=== PATIENT | male | born 1955 | race African-American/Black ===

== ENCOUNTER 2018-03-06 16:01 | Inpatient (IN) | payer MEDICARE, OTHER, SELFPAY ==
[~2018-03-06 16:01] MED LIST: ISOVUE-370 76%-LOCM 1 ML ONE; Iopamidol 370 76% 100 ML VIAL ONE; Iopamidol 370 76% 50 ML VIAL FS ONE; Lidocaine 1% PF 5 ML VIAL ONE; Ondansetron HCl/PF 4 MG/2 ML Vial ONE; PROPOFOL 200 MG/20 ML VIAL ONE; Succinylcholine Chloride 20 MG/ML 10 ml SYRINGE FS ONE; ePHEDrine/0.9% NaCl/PF SYRINGE 50 mg/10 ml ONE
[2018-03-06 16:22] LABS: #Basophils 0.1 thou/uL (0.0-0.2); #Eosinphils 0.8 thou/uL (0.0-0.7); #Lymphocytes 2.5 thou/uL (1.20-3.40); #Monocytes 0.6 thou/uL (0.11-0.59); #Neutrophils 3.4 thou/uL (1.40-6.50); %Basophils 1.5 % (0.0-1.0); %Eosinophils 11.3 % (0.0-10.0); %Lymphocytes 33.2 % (21.0-51.0); %Monocytes 8.3 % (0.0-10.0); %Neutrophils 45.7 % (42.0-75.0); Hemoglobin 14.3 g/dL (14.0-18.0); Mean Corpuscular HGB CONC 33.8 g/dL (32.0-36.0); Mean Platelet Volume 7.9 fL (7.4-10.4); Platelet Count 259 thou/uL (130-400); RBC Distribution Width 12.2 % (11.5-14.5); White Blood Cell (WBC) Count 7.4 thou/uL (4.8-10.8)
[2018-03-06 16:28] LABS: PTT 26.8 SEC (22.9-36.1); Prothrombin Time 13.4 SEC (12.0-14.7)
--- NOTE | 2018-03-06 16:29 | CT ---
NONCONTRAST CT HEAD 03/06/18 HISTORY: Aphasia. Patient unable to walk or stand unassisted. Has had a headache all day. FINDINGS: Scattered low density areas are seen throughout the periventricular white matter which are nonspecifi c but likely attributable to chronic small vessel ischemic changes. There are low density areas seen in each basal ganglia suggesting lacunar infarctions of indeterminate age. There is no evidence of an acute cortical infarction, hemorrhage, mass effect, or midline shift. There is a hyperdense asymmetr ic left MCA which could be related to thrombus in the left MCA. No definitive cortical infarction is seen on the left. There is mild cerebral volume loss. The ventricular system is normal in size, shape and position. There is mild mucosal thickening involving the ethmoidal air cells, and left sphenoid sinus and to a lesser degree right sphenoid sinus. There is mild deformity of the anterior wall left maxillary antru m as well as remote fracture and deformity involving the nasal bone. There is minimal scalp soft tissue swelling in the left supraorbital location. IMPRESSION: 1. Hyperdense left MCA sign which suggesting acute thrombus within the left middle cerebral sujatha ry. The dsouza-white differentiation does appear preserved, and no acute cortical infarction is seen on this exam. CT angiogram is recommended for further evaluation. 2. Lacunar infarctions in each basal ganglia of indeterminate age. 3. Chronic small vessel ischemic changes and cerebral volume loss. 4. Mild sinus disease. 5. Remote fracture and deformity involving the nasal bone as well as remote fracture deformity o f the anterior wall of the maxillary antrum. 6. Above findings discussed with Dr. Chi in the Emergency Department on 03/06/18 at 1616 hour s. POS: [facility]
[2018-03-06 16:35] LABS: ALT (SGPT) 61 U/L (8-55); AST (SGOT) 86 U/L (5-34); Albumin 3.9 g/dL (3.4-4.8); Alkaline Phosphatase 74 U/L (40-150); Anion Gap 14 mmol/L (10-20); BUN (Urea Nitrogen) 12 mg/dL (8.4-25.7); Bilirubin, Total 0.3 mg/dL (0.2-1.2); Calc. Creatinine Clearance 0 mL/min (70-130); Calcium 9.3 mg/dL (7.8-10.44); Carbon Dioxide 21 mmol/L (23-31); Chloride 106 mmol/L (98-107); Estimated GFR-MDRD 74; Glucose 116 mg/dL (80-115); Potassium 3.8 mmol/L (3.5-5.1); Protein, Total 7.9 g/dL (5.8-8.1); Sodium 137 mmol/L (136-145)
[2018-03-06 16:38] LABS: CKMB 1.5 ng/mL (0-6.6); Troponin I Less than 0.010 ng/mL (< 0.028)
[2018-03-06] MEDS ORDERED: Fentanyl 100 MCG/2 ML VIAL ONE ×2 (16:49→19:07)
[2018-03-06] MEDS ORDERED: Lidocaine 1% (PF) 30 ML VIAL ONE (16:52)
--- NOTE | 2018-03-06 16:56 | CT ---
CT ANGIOGRAM OF THE HEAD CT ANGIOGRAM OF THE NECK 03/06/18 HISTORY: Aphasia. Unable to stand and walk. Headache. COMPARISON: None. TECHNIQUE: CT angiogram of the head and neck are performed in the axial plane. Three dimensional reformatted zulma ges are submitted for interpretation. FINDINGS: Cortical dsouza-white matter differentiation appears to be preserved. No definite hemorrhage or extra-a xial hematoma. Adequate aeration of the sinuses and mastoid air cells. Bilateral ocular lenses are ap propriately located. Both globes are intact. Retrobulbar fat is preserved. Aerodigestive tract is patent. No obvious mass in the ------ cavity. Evaluation is limited by dental amalgam artifact. Epiglottis has normal caliber. Pre-epiglottic fat is preserved. There is no prevert ebral soft tissue swelling. Symmetric attenuation of the parotid and submandibular glands. Appropriate attenuation of the thyroid gland. Symmetric attenuation of the sternocleidomastoid muscles. Cervical spine vertebral body height is maintained. There is no fracture. There are fusion changes at C5-C6. Upper mediastinum and lung apices are unremarkable. Minimal dependent atelectatic changes. CT ANGIOGRAM: The visualized aortic arch has appropriate enhancement and luminal diameter. RIGHT CAROTID: The origin of the right carotid artery has appropriate enhancement and luminal diameter. There is mil d atherosclerotic disease involving the distal common carotid artery and carotid bifurcation. Neverth eless, no significant stenosis based upon NASCET criteria. Based on the sagittal reformatted images, there is short segment mild stenosis. LEFT CAROTID: The origin of the left carotid artery has appropriate enhancement and luminal diameter. There is appr opriate enhancement a nd luminal diameter of the left common carotid artery. In the left carotid bifurcation, there is shor t segment moderate stenosis based upon NASCET criteria (60% stenosis). Both subclavian arteries are unremarkable. Both cervical vertebral arteries are patent throughout the ir course in the neck. CT ANGIOGRAM OF THE HEAD: There is appropriate enhancement in luminal diameter of the distal cervical and intracranial internal carotid arteries. ANTERIOR CIRCULATION: There is appropriate enhancement and luminal diameter of the left and right A1 segments and the right M1 segments. There is abrupt truncation of contrast involving the proximal right M1 segment compatib le with thrombosis. The overall number of vessels in the right and left MCA distributions are relativ pete symmetric. Findings would imply appropriate collateralization at this time. POSTERIOR CIRCULATION: Both PICA artery origins are unremarkable. Both PICA arteries supply a normal appearing basilar arter y. The left and right P1 segments have symmetric enhancement and luminal diameter. IMPRESSION: 1. Thrombosis involving the left M1 segment. 2. Moderate stenosis involving the proximal left internal carotid artery. Results of the study discussed with Dr. Thomas 03/06/18 at 4:35 p.m. Code CR POS: [facility]
[2018-03-06] MEDS ORDERED: Heparin 10,000 UNITS/1 ML VIAL ONE (17:03)
[2018-03-06] MEDS ORDERED: hydrALAZINE 20 MG/ML VIAL ONE (17:08)
[2018-03-06] MEDS ORDERED: Esmolol 100 MG/10 ML VIAL ONE (17:08)
--- NOTE | 2018-03-06 17:43 | PRG ---
DATE OF SERVICE: 03/06/2018 SUBJECTIVE: Mr. Gonzalez is a 62-year-old gentleman that was noted to have the abrupt onset of rig ht hemiplegia and aphasia. He was brought to the emergency room where he underwent a noncontrast hea d CT which was negative for bleed. He subsequently underwent a CT angiogram of the head which reveal s presence of thrombus in the left M1 segment. The ER physician called me and already initiated the TPA process. She and I had a discussion and bas ed on all criteria, made decision to bring the patient back to the angiogram suite for the purposes o f cerebral angiography and potentially mechanical thrombectomy.
[2018-03-06] MEDS ORDERED: Labetalol HCl 100 MG/20 ML VIAL SLOW IVP PRN (18:59)
[2018-03-06] MEDS: Sodium Chloride 0.9% 1,000 ML IV SCH (21:14)
[2018-03-06] MEDS: Atorvastatin Calcium 40 MG TAB PO SCH (21:15)
[2018-03-06] MEDS: [UNRECOGNIZED DRUG - REMARK] FS SCH (21:16)
[2018-03-07] MEDS: Sodium Chloride 0.9% 1,000 ML IV SCH (08:03)
--- NOTE | 2018-03-07 08:32 | CT ---
CT BRAIN: Date: 03/07/18 PROVIDED CLINICAL HISTORY: Stroke. FINDINGS: Comparison made with study dated 03/06/18. There is interval development of more conspicuous hypodensity involving the left caudate, anterior li mb of left internal capsule, and left lentiform nucleus. The insular cortex is somewhat indistinct in portions. There is no evidence for intracranial hemorrhage with limitations due to patient motion. T here is mild mass effect upon the frontal horn of the left lateral ventricle due to the caudate regio n hypodensity. The extracranial soft tissues and osseous structures demonstrate an unremarkable CT ap pearance. IMPRESSION: 1. Findings compatible with left MCA distribution infarction. 2. No evidence for intracranial hemorrhage. POS: [facility]
[2018-03-07] MEDS: Sodium Chloride 0.45% 1,000 ML IV SCH ×2 (10:04→21:25)
--- NOTE | 2018-03-07 12:20 | CON ---
DATE OF CONSULTATION: 03/07/2018 CONSULTING PHYSICIAN: Hospitalist Service. IMPRESSION: 1. Left middle cerebral artery stroke. 2. Hypertension. 3. Tobacco use. PLAN: 1. Start aspirin after the 24-hour window from TPA. 2. Echocardiogram. 3. Reevaluate swallow function today. HISTORY OF PRESENT ILLNESS: Mr. Gonzalez is a 62-year-old gentleman who presented with expressive aphasia and right-sided weakness. His CT angio revealed an M1 segment occlusion. Dr. Lopez taken to the pathology laboratory director and perform thrombectomy. He also received TPA. He moved to the intensive care unit a nd has been on a Cardene drip. His blood pressures have been under good control, has not had any sub sequent problems such as seizures. PAST MEDICAL HISTORY: As listed above. ALLERGIES: None. SOCIAL HISTORY: Positive for tobacco use. FAMILY HISTORY: Unknown. REVIEW OF SYSTEMS: Not obtainable. PHYSICAL EXAMINATION: VITAL SIGNS: Pulse 88, blood pressure 133/56, respirations 15, saturations 96%. HEENT: Pupils equal and reactive. Conjunctivae clear. Oropharynx clear. NECK: Supple, no lymphadenopathy. EXTREMITIES: No cyanosis, clubbing or edema. NEUROLOGIC: He was alert and followed commands reasonably well. He had significant expressive langu age difficulties. There is a right nasal labial fold flattening. He had antigravity strength on the right side, though his rapid alternating movements were a bit sluggish. Sensation was grossly intac t. Plantar responses were equivocal on the right and downgoing on the left. Sensation seemed to be intact. Gait is not testable. LABORATORY STUDIES: EKG shows normal sinus rhythm. CT scan of the brain showed evidence of an evolving left MCA distribution ischemic changes. SUMMARY: This is a 62-year-old gentleman with a history of hypertension and thrombosis in the left M 1 segment. He has some residual expressive aphasia, but is looking reasonably good in regards to par alysis. Agree with current care. Complete his workup with an echocardiogram.
--- NOTE | 2018-03-07 12:25 | CON ---
DATE OF CONSULTATION: 03/07/2018 SERVICE: Pulmonary Medicine. REASON FOR CONSULTATION: ICU patient. HISTORY OF PRESENT ILLNESS: The patient is a 62-year-old male with past medical history significant for essentially nothing who presented to the hospital with an abrupt onset of neurologic changes. He got TPA and underwent a CIERRA procedure with extraction of a large thrombus. He was intubated for the procedure. Afterwards, he was extubated. Overnight, neurologically he remained intact. He is following commands. He is moving all 4 extremities, but continues to have a persistent expressive aphasia. As such, I cannot get additional elements of the history. PAST MEDICAL HISTORY: 1. Hypertension. 2. Gastroesophageal reflux disease. PAST SURGICAL HISTORY: Unknown. SOCIAL HISTORY: The family denies significant alcohol or illicit drug use. He uses tobacco on a daily basis. FAMILY HISTORY: Noncontributory. ALLERGIES: No known drug allergies. MEDICATIONS: List of his inpatient medications were reviewed. No specific updates were made at this time. REVIEW OF SYSTEMS: General, head, ears, eyes, nose, throat, cardiovascular, respiratory, GI, , musculoskeletal, neurologic and skin is negative except as mentioned in the HPI. PHYSICAL EXAMINATION: VITAL SIGNS: Afebrile, pulse 87, blood pressure 124/62, respirations 24, saturation 97% on room air. GENERAL: The patient is awake and alert, in no apparent distress. LUNGS: Excellent air entry with no prolonged expiratory phase, wheezing, rhonchi or crackles present. HEART: Normal rate, regular. ABDOMEN: Soft, nontender, nondistended. Bowel sounds are positive. MUSCULOSKELETAL: No cyanosis or clubbing. No pitting in the bilateral lower extremities. NEUROLOGIC: Grossly nonfocal. LABORATORY DATA: WBC 7.4, hemoglobin 14.3, platelets 259,000. INR 1.0. Basic metabolic profile and liver function studies are unremarkable except for a mildly elevated AST and ALT. Cardiac enzymes are negative x1. IMAGIN. CT of the brain from this morning demonstrates findings compatible with left MCA distribution infarction with no evidence of intracranial hemorrhage. 2. CT of the [place] demonstrates thrombus involving the left M1 segment with moderate stenosis involving the proximal left internal carotid artery. 3. Original CT of brain demonstrates hyperdense left MCA sign suggesting acute thrombus. Lacunar infarcts are age indeterminate. History of facial fractures. ASSESSMENT: 1. Cerebrovascular accident, status post TPA and CIERRA procedure. 2. Hypertension. DISCUSSION AND PLAN: After 24 hours, the patient will be a candidate for transition out of the ICU to the stroke unit. Pulmonary Critical Care will continue to follow if he remains in this location. 70 minutes have been devoted to this patient in various activities. I personally reviewed all imaging studies and laboratory data noted within this document. For fifty percent of this time, I was interacting with the patient at the bedside or coordinating care with the care team. For the remainder of the time I was immediately available to the patient in the hospital unit. ANILA
--- NOTE | 2018-03-07 12:53 | HP ---
CHIEF COMPLAINT: Drug symptoms. HISTORY OF PRESENT ILLNESS: Patient is a 62-year-old male who apparently had a history of a prior st roke who was in his usual state of health and presented to the emergency department with altered ment al status and weakness. In the emergency department, the patient had a CT of the brain, showed a hyp erdense left MCA sign suggesting acute thrombus within the left MCA with no acute cortical infarction seen. Lacunar infarctions of each basal ganglia of indeterminate age were noted. Chronic small ves giselle ischemia, mild sinus disease and remote fracture deformity involving the nasal bone and maxillary antrum by a subsequent CT angiogram revealed thrombus involving the left M1 segment with moderate st enosis involving the proximal left internal carotid artery. Dr. Lopez evaluated the patient in the e mergency department. The patient had TPA initiated. The patient was taken for mechanical thrombecto my which apparently was unsuccessful. Subsequently, the patient has remained somewhat aphasic with e xpressive aphasia. A repeat CT today shows findings compatible with left MCA distribution infarction . REVIEW OF SYSTEMS: Not obtainable as the patient is suffering from some expressive aphasia. The pat christen's is unable to give significant more information, although she is present. PAST MEDICAL HISTORY: Notable for hypertension and occasional reflux symptoms. She is unaware of an y prior surgeries that he may have had. She does not know anything about his past medical history pr ior to that time that they have been together which she says was 2005. She does report that he had a prior CVA in [facility]. FAMILY HISTORY: Unknown. SOCIAL HISTORY: The patient smokes a pack of cigarettes per day. He drinks beer 2-3 cans per day. She is unaware if he does any drugs or not. ALLERGIES: None known. MEDICATIONS: The patient takes something for hypertension and occasionally for reflux, but those spe cifics are not known. The patient's does not know what they are. PHYSICAL EXAMINATION: VITAL SIGNS: Temperature is 98.3, pulse 85, BP 134/61, O2 sat 97% on room air, BP 104/61. GENERAL APPEARANCE: Age appropriate male. He is in no distress. He is awake and somewhat alert. H e makes eye contact and will follow commands, and attempting to verbalize. He tends to make more norm se than words. HEENT: He has arcus senilis. No OP lesions. CARDIOVASCULAR: Regular rate and rhythm with no murmurs. LUNGS: Clear to auscultation bilaterally with good chest wall expansion, air exchange. ABDOMEN: Soft, nontender, nondistended. EXTREMITIES: Warm and dry without significant edema. NEUROLOGIC: The patient moves all extremities. He will follow commands and has fairly good strength bilaterally, although it is unclear if he is given full efforts. He does appear to understand that he is being asked a question and does try to verbalize response, but his responses again are not comp rehensible. LABORATORY DATA: Initial labs from 03/06/2018, white count 7.4, hemoglobin 14.3, platelets 259. INR 1, PTT 26.8. Chemistries notable for CO2 of 21, glucose 116, AST 86, ALT 61. ASSESSMENT AND PLAN: 1. Cerebrovascular accident of the left M1 distribution with tPA and mechanical thrombectomy. The p atient has some persistent left MCA infarct and has some expressive aphasia. Appears to have fairly good movement, otherwise. The patient will remain in the ICU until 24 hours after the tPA and interv ention, then he can likely come to the stroke floor. Neurology has been consulted as well as the [facility] team. 2. Hypertension. The patient apparently had some elevated blood pressure in the night and had a Car dene drip started, which is now being weaned off as his blood pressures are quite good. DISPOSITION: I spoke to the patient's . He is a FULL CODE presently. We will continue to monit or his recovery. She reports that they are currently living with his brother, but is trying to get t hemselves into an apartment. We will need social work to help engage them to determine where the dis position may ultimately be.
[2018-03-07] MEDS: Atorvastatin Calcium 40 MG TAB PO SCH (21:26)
[2018-03-08] MEDS: [UNRECOGNIZED DRUG - REMARK] FS SCH (06:14)
[2018-03-08] MEDS: Sodium Chloride 0.45% 1,000 ML IV SCH ×3 (06:15→16:45)
[2018-03-08] MEDS: Enoxaparin Sodium 40 MG/0.4 ML SYRINGE SC SCH (08:20)
[2018-03-08 08:24] LABS: #Basophils 0.1 thou/uL (0.0-0.2); #Eosinphils 0.5 thou/uL (0.0-0.7); #Lymphocytes 2.1 thou/uL (1.20-3.40); #Monocytes 0.8 thou/uL (0.11-0.59); #Neutrophils 5.3 thou/uL (1.40-6.50); %Basophils 0.9 % (0.0-1.0); %Lymphocytes 23.8 % (21.0-51.0); %Neutrophils 60.3 % (42.0-75.0); Hemoglobin 14.4 g/dL (14.0-18.0); Mean Corpuscular HGB CONC 33.4 g/dL (32.0-36.0); Mean Corpuscular Hemoglobin 33.4 pg (27.0-31.0); Mean Platelet Volume 7.9 fL (7.4-10.4); Platelet Count 220 thou/uL (130-400); RBC Distribution Width 12.4 % (11.5-14.5); White Blood Cell (WBC) Count 8.7 thou/uL (4.8-10.8)
[2018-03-08 08:47] LABS: Anion Gap 16 mmol/L (10-20); BUN (Urea Nitrogen) 9 mg/dL (8.4-25.7); Calc. Creatinine Clearance 74 mL/min (70-130); Calcium 8.9 mg/dL (7.8-10.44); Carbon Dioxide 20 mmol/L (23-31); Chloride 102 mmol/L (98-107); Estimated GFR-MDRD Greater than 90; Glucose 107 mg/dL (80-115); Potassium 3.5 mmol/L (3.5-5.1); Sodium 134 mmol/L (136-145)
[2018-03-08] MEDS: Labetalol HCl 100 MG/20 ML VIAL SLOW IVP PRN ×3 (12:00→23:29)
--- NOTE | 2018-03-08 12:23 | PRG ---
DATE OF SERVICE: 03/08/2018. SUBJECTIVE: Mr. Gonzalez is now 2 days status post TPA & mechanical thrombectomy for a left MCA occlusion. Neurologically, he is doing extraordinarily well. He is able to move both sides in the upper and lower extremities. He is able to interact with me with respect to speech. He does have mild degree of expressive aphasia. This is a dramatic improvement as compared to his baseline NIH score upon presentation. I will defer additional stratification for stroke risk factors and medical management to our hospital service. ANILA
--- NOTE | 2018-03-08 13:37 | PDOC.PN ---
- Subjective Encounter Start Date: 03/08/18 Encounter Start Time: 11:00 No speaking much because of expressive dysphasia, but denies any problems. - Objective Vital Signs & Weight: Vital Signs (12 hours) Temp Pulse Pulse Pulse Pulse Resp BP 03/08/18 12:51 98.9 F 88 16 03/08/18 12:31 03/08/18 12:00 81 03/08/18 10:10 76 70 72 204/92 H 03/08/18 08:00 99.3 F 81 16 03/08/18 04:45 99.2 F 83 16 BP BP BP Pulse Ox 03/08/18 12:51 212/103 H 98 03/08/18 12:31 177/82 H 03/08/18 12:00 03/08/18 10:10 201/85 H 192/100 H 03/08/18 08:00 179/98 H 96 03/08/18 04:45 185/95 H 96 Weight Admit Weight 134 lb 14.766 oz Weight 134 lb 14.766 oz Most Recent Monitor Data Heart Rate from ECG 66 NIBP 144/68 NIBP BP-Mean 99 Respiration from ECG 22 SpO2 99 I&O: 03/07/18 03/08/18 03/09/18 06:59 06:59 06:59 Intake Total 1043 280 900 Output Total 2580 860 Balance -1537 -580 900 Result Diagrams: 03/08/18 08:17 03/08/18 08:17 Phys Exam - Physical Examination Constitutional: NAD Much more awake and alert. Respiratory: no wheezing, no rales, no rhonchi, clear to auscultation bilateral Cardiovascular: RRR, no significant murmur, no rub Gastrointestinal: soft, non-tender, no distention, positive bowel sounds Musculoskeletal: no edema Good movement and strength of extremities. Appears mentally intact, but has expressive challenges. Psychiatric: normal affect Dx/Plan (1) CVA (cerebral vascular accident) Code(s): I63.9 - CEREBRAL INFARCTION, UNSPECIFIED Status: Acute Comment: Had TPA and mechanical extraction of thrombus. Primary residual is the expressive dysphasia. Has some dysphagia as well. Continue statin. Add ASA. Continue with therapies. Consider discharge options with CM tomorrow. (2) Expressive dysphasia Code(s): R47.02 - DYSPHASIA Status: Acute Comment: Able to speak single words correctly from time to time. (3) Hypertension Code(s): I10 - ESSENTIAL (PRIMARY) HYPERTENSION Status: Acute Comment: Has variable BP. Was on BP meds at home, but his was unable to help us know what it was. Some permissive HTN, but has PRN's for BP greater than 180. Higher than that now. Will add amlodipine and HCTZ for daily treatment at this point. - Plan * above.
[2018-03-08] MEDS ORDERED: Amlodipine 5 MG TAB PO SCH (14:00)
--- NOTE | 2018-03-08 17:50 | PRG ---
DATE OF SERVICE: 03/08/2018 SERVICE: Pulmonary Medicine. INTERVAL HISTORY: The patient is doing really remarkable from a neurologic standpoint. He continues to have a little aphasia. That being said, he has been able to get out of bed into the chair multip le times throughout the day. His strength actually seems to be pretty good. He denies any shortness of breath. He has a little bit of a cough, but is not bringing up any sputum. He seems to be swall owing okay with modifications that have been made. PHYSICAL EXAMINATION: VITAL SIGNS: Afebrile, pulse 82, blood pressure 135/87, respirations 20, saturation 96% on room air. GENERAL: The patient is awake, alert, no apparent distress. LUNGS: Decent air entry with no prolonged expiratory phase. There is rhonchi present, but it clears with cough. HEART: Normal rate, regular. ABDOMEN: Soft, nontender, nondistended. Bowel sounds are positive. MUSCULOSKELETAL: No cyanosis or clubbing. There is no pitting in the bilateral lower extremities. NEUROLOGIC: Grossly nonfocal. LABORATORY DATA: CBC is essentially unremarkable and/or stable. Basic metabolic profile is signific ant for sodium of 134. Otherwise, it is stable. Troponin is negative x1. IMAGING: Echocardiogram demonstrates 60% -65% ejection fraction with a diastolic dysfunction. ASSESSMENT: 1. Cerebrovascular of the left MCA, status post TPA and CIERRA procedure. 2. Hypertension. 3. Chronic diastolic heart failure. DISCUSSION AND PLAN: At this point, the patient is stable for transition out of the hospital from a purely respiratory perspective. He has no further requirements for inpatient Pulmonary or Pulmonary or Critical Care opinion. As such, I will sign off. Please call with additional questions or concer ns moving forward.
[2018-03-08] MEDS: Atorvastatin Calcium 40 MG TAB PO SCH (20:55)
[2018-03-09] MEDS: hydrALAZINE 20 MG/ML VIAL SLOW IVP PRN ×2 (01:11→08:41)
[2018-03-09] MEDS: Sodium Chloride 0.45% 1,000 ML IV SCH ×2 (04:41→09:43)
[2018-03-09] MEDS: Labetalol HCl 100 MG/20 ML VIAL SLOW IVP PRN ×5 (05:32→20:23)
[2018-03-09] MEDS: Aspirin 325 MG TAB PO SCH (07:48)
[2018-03-09] MEDS: Hydrochlorothiazide 25 MG TAB PO SCH (07:48)
[2018-03-09] MEDS: Enoxaparin Sodium 40 MG/0.4 ML SYRINGE SC SCH (07:48)
[2018-03-09] MEDS: Amlodipine 10 MG TAB PO SCH (08:49)
--- NOTE | 2018-03-09 08:57 | PDOC.PN ---
- Subjective Encounter Start Date: 03/09/18 Encounter Start Time: 08:55 No new complaints. Has removed his telemetry. is present. She says the records for [facility] Apparently he was on Lisinopril and HCTZ for BP at home. She does not know what his blood pressure was running prior to this admission. She did say [facility] because his BP was not well controlled and the meds were to be increased. They did not go that follow up, but moved here. - Objective Vital Signs & Weight: Vital Signs (12 hours) Temp Pulse Resp BP BP Pulse Ox 03/09/18 08:49 75 193/96 H 03/09/18 08:41 75 193/96 H 03/09/18 08:01 98.4 F 72 16 206/105 H 96 03/09/18 07:47 67 206/105 H 03/09/18 07:30 94 L 03/09/18 05:32 90 03/09/18 04:00 99.3 F 90 24 H 186/103 H 98 03/09/18 01:11 71 03/08/18 23:58 98.6 F 71 20 206/108 H 97 03/08/18 23:29 86 03/08/18 20:56 86 Weight Admit Weight 134 lb 14.766 oz Weight 111 lb 12.8 oz Most Recent Monitor Data Heart Rate from ECG 66 NIBP 144/68 NIBP BP-Mean 99 Respiration from ECG 22 SpO2 99 I&O: 03/08/18 03/09/18 03/10/18 06:59 06:59 06:59 Intake Total 280 900 Output Total 860 Balance -580 900 Result Diagrams: 03/08/18 08:17 03/08/18 08:17 Phys Exam - Physical Examination Constitutional: NAD Speech is slightly better. Respiratory: no wheezing, no rales, no rhonchi, clear to auscultation bilateral Cardiovascular: RRR, no significant murmur, no rub Gastrointestinal: soft, non-tender, no distention, positive bowel sounds Musculoskeletal: no edema Improved, but persistent expressive dysphasia. Psychiatric: normal affect Dx/Plan (1) CVA (cerebral vascular accident) Code(s): I63.9 - CEREBRAL INFARCTION, UNSPECIFIED Status: Acute Comment: Had TPA and mechanical extraction of thrombus. Primary residual is the expressive dysphasia. Has some dysphagia as well. Continue statin. Add ASA. Continue with therapies. Consider discharge options with CM tomorrow. (2) Expressive dysphasia Code(s): R47.02 - DYSPHASIA Status: Acute Comment: Using several words, but still very challenged. (3) Hypertension Code(s): I10 - ESSENTIAL (PRIMARY) HYPERTENSION Status: Acute Comment: BP running very high overnight. Has had several PRN IV meds given without much improvement. Will increase the amlodipine dose and try the Labetalol since the hydralazine was not as helpful. Suspect he was running fairly high at home too. He appears asymptomatic, but challenging to know. - Plan * Work on controlling BP today. CM to work with patient's on dispo options. They are living with his brother now. She indicates that she has no way to prepare puree'd foods for him.
[2018-03-09] MEDS ORDERED: Amlodipine 5 MG TAB PO SCH ×2 (09:00)
--- NOTE | 2018-03-09 09:10 | PDOC.EVN ---
Event Note - Event Note Event Note: Noticing the patient's elevated MCV, the difficulty in controlling his BP and the report that the patient was up and moving around much of the night, I followed up with the patient's about his alcohol consumption. The 3 beers per day she initially reported that he drank daily are actually 24 oz cans rather than 12. She states he has drank that much everyday since she has known him. She says he drinks first thing in the morning. He has beer in stead of breakfast. I suspect this is some level of withdrawal and his BP is elevated as a result. I will give some ativan now and start librium.
[2018-03-09] MEDS: Lorazepam 1 MG TAB PO PRN (09:55)
[2018-03-09] MEDS ORDERED: Lorazepam 2 MG/ML VIAL SLOW IVP SCH (13:15)
[2018-03-09] MEDS: chlordiazePOXIDE HCl 25 MG CAP PO SCH ×2 (13:43→20:19)
[2018-03-09] MEDS ORDERED: Lorazepam 2 MG/ML VIAL SLOW IVP PRN (15:14)
[2018-03-09] MEDS ORDERED: Folic Acid 1 MG TAB PO SCH (16:15)
--- NOTE | 2018-03-09 16:22 | CCL ---
RADIOLOGY PROCEDURE NOTE: Date: 03/06/18 SURGEON: Sarkis Lopez M.D. SOLAR PHOTOVOLTAIC ELECTRICIAN: None. INDICATION: Ischemic stroke. DIAGNOSIS: Left MCA occlusion. PROCEDURE: Cerebral angiography with mechanical thrombectomy. ANESTHESIA: General. TECHNIQUE: The patient was brought into the angiogram suite and placed under general anesthesia. Both groins wer e prepped and draped in usual sterile fashion. 1% lidocaine was used to inject the right groin. A 5 [place] micropuncture set was used to gain access to the right common femoral artery. Using the Seldin filemon technique, an 8 [place] sheath was placed. An 8 [place] concentric guide catheter was passed over a 130 cm Jones II catheter, which was passed over a [employer] guidewire, was then placed within the le ft internal carotid artery. An AP and lateral angiogram was performed, which revealed complete occlus ion of the mid portion of the left middle cerebral artery. A Trevo device was deployed a total of 3 times. On the 3rd time, there was complete religious of flow into the middle cerebral artery territ ory with TICI score equal to 3. Guide was removed. Sheath was sewn into place secondary to prior admi nistration of TPA. The procedure came to an end without known complication. IMPRESSION: The patient underwent successful diagnostic angiography. Angiography revealed the presence of a compl ete occlusion of the left middle cerebral artery, which was suggested on the patient's CT angiogram. The patient underwent successful mechanical thrombectomy with religious of blood flow into the midd le cerebral artery.
[2018-03-09] MEDS: Atorvastatin Calcium 40 MG TAB PO SCH (20:19)
[2018-03-09] MEDS: Metoprolol Tartrate 25 MG TAB PO SCH (20:19)
[2018-03-10 06:24] LABS: #Basophils 0.1 thou/uL (0.0-0.2); #Eosinphils 0.1 thou/uL (0.0-0.7); #Lymphocytes 1.1 thou/uL (1.20-3.40); #Monocytes 0.9 thou/uL (0.11-0.59); #Neutrophils 6.5 thou/uL (1.40-6.50); %Basophils 1.1 % (0.0-1.0); %Eosinophils 1.7 % (0.0-10.0); %Lymphocytes 12.8 % (21.0-51.0); %Monocytes 10.6 % (0.0-10.0); %Neutrophils 73.9 % (42.0-75.0); Hemoglobin 15.6 g/dL (14.0-18.0); Mean Corpuscular Hemoglobin 33.4 pg (27.0-31.0); Mean Corpuscular Volume 98.5 fL (78.0-98.0); Mean Platelet Volume 8.9 fL (7.4-10.4); Platelet Count 221 thou/uL (130-400); RBC Distribution Width 12.3 % (11.5-14.5); Red Blood Cell (RBC) Count 4.66 mill/uL (4.70-6.10); White Blood Cell (WBC) Count 8.8 thou/uL (4.8-10.8)
[2018-03-10 06:46] LABS: Anion Gap 17 mmol/L (10-20); BUN (Urea Nitrogen) 27 mg/dL (8.4-25.7); Calc. Creatinine Clearance 46 mL/min (70-130); Calcium 9.8 mg/dL (7.8-10.44); Carbon Dioxide 22 mmol/L (23-31); Chloride 94 mmol/L (98-107); Estimated GFR-MDRD 79; Glucose 124 mg/dL (80-115); Potassium 3.5 mmol/L (3.5-5.1); Sodium 129 mmol/L (136-145)
[2018-03-10] MEDS: Folic Acid 1 MG TAB PO SCH (08:51)
[2018-03-10] MEDS: Amlodipine 10 MG TAB PO SCH (08:51)
[2018-03-10] MEDS: Metoprolol Tartrate 25 MG TAB PO SCH ×2 (08:51→20:54)
[2018-03-10] MEDS: Enoxaparin Sodium 40 MG/0.4 ML SYRINGE SC SCH (08:51)
[2018-03-10] MEDS: Hydrochlorothiazide 25 MG TAB PO SCH (08:51)
[2018-03-10] MEDS: Aspirin 325 MG TAB PO SCH (08:51)
[2018-03-10] MEDS: chlordiazePOXIDE HCl 25 MG CAP PO SCH ×3 (08:51→20:54)
--- NOTE | 2018-03-10 09:42 | PDOC.PN ---
- Subjective Encounter Start Date: 03/10/18 Encounter Start Time: 09:41 Still has some agitation. said he was agitated with her when she tried to keep him from getting out of bed. No other issues noted. - Objective Vital Signs & Weight: Vital Signs (12 hours) Temp Pulse Resp BP Pulse Ox 03/10/18 08:51 98 03/10/18 08:00 98.5 F 98 14 185/99 H 93 L 03/10/18 04:00 98.0 F 81 18 163/88 H 96 03/10/18 00:00 97.7 F 91 19 184/98 H 95 Weight Admit Weight 134 lb 14.766 oz Weight 109 lb 9.6 oz Most Recent Monitor Data Heart Rate from ECG 66 NIBP 144/68 NIBP BP-Mean 99 Respiration from ECG 22 SpO2 99 I&O: 03/09/18 03/10/18 03/11/18 06:59 06:59 06:59 Intake Total 900 900 Balance 900 900 Result Diagrams: 03/10/18 05:40 03/10/18 05:40 Phys Exam - Physical Examination Constitutional: NAD Somnolent/slightly sedated. Respiratory: no wheezing, no rales, no rhonchi, clear to auscultation bilateral Cardiovascular: RRR, no significant murmur, no rub Gastrointestinal: soft, non-tender, no distention, positive bowel sounds Musculoskeletal: no edema Dx/Plan (1) CVA (cerebral vascular accident) Code(s): I63.9 - CEREBRAL INFARCTION, UNSPECIFIED Status: Acute Comment: Had TPA and mechanical extraction of thrombus. Primary residual is the expressive dysphasia. Has some dysphagia as well. Continue statin. Add ASA. Continue with therapies. Consider discharge options with CM tomorrow. Disposition limited by EtOH WD symptoms. (2) Expressive dysphasia Code(s): R47.02 - DYSPHASIA Status: Acute Comment: Using several words, but still very challenged. (3) Hypertension Code(s): I10 - ESSENTIAL (PRIMARY) HYPERTENSION Status: Acute Comment: BP still high, but improved. Has PRN's. Started Amlodipine, HCTZ, Metoprolol sceduled. Baseline HTN and exacerbated by EtOH WD. (4) Alcohol withdrawal delirium, acute, hyperactive Code(s): F10.231 - ALCOHOL DEPENDENCE WITH WITHDRAWAL DELIRIUM Status: Acute Comment: Thiamine, Folate, scheduled Librium and PRN ativan. - Plan * Need to work through the EtOH WD.
[2018-03-10] MEDS: Labetalol HCl 100 MG/20 ML VIAL SLOW IVP PRN (15:52)
--- NOTE | 2018-03-10 17:37 | RAD ---
KUB: 03/10/18 HISTORY: Dobhoff tube placement. Dobhoff feeding tube is present. The tip is in the distal esophagus. The tube is coiled with the core portion in the fundus region but the tip directed cephalad. IMPRESSION: Dobhoff feeding tube with the tip of the tube in the distal esophagus and the tip is directed cephala d. POS: [facility]
--- NOTE | 2018-03-10 18:49 | RAD ---
AP VIEW ABDOMEN 03/10/18 HISTORY: NG tube placement. AP view abdomen obtained. The Dobhoff tube has been pulled back when compared to the previous exam fr om earlier in the day. The distal tip of the Dobhoff tube is just above the gastroesophageal junction . The Dobhoff tube needs to be advanced approximately 10 cm to be in good position to be in the stoma ch and advanced approximately 20 cm to be in the duodenum. IMPRESSION: The Dobhoff tube is at the level of the GE junction. POS: [facility]
[2018-03-10] MEDS: Atorvastatin Calcium 40 MG TAB PO SCH (20:54)
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
[2018-03-11] MEDS: Amlodipine 10 MG TAB PO SCH (07:45)
[2018-03-11] MEDS: Aspirin 325 MG TAB PO SCH (07:45)
[2018-03-11] MEDS: Enoxaparin Sodium 40 MG/0.4 ML SYRINGE SC SCH (07:45)
[2018-03-11] MEDS: chlordiazePOXIDE HCl 25 MG CAP PO SCH (07:45)
[2018-03-11] MEDS: Folic Acid 1 MG TAB PO SCH (07:45)
[2018-03-11] MEDS: Metoprolol Tartrate 25 MG TAB PO SCH ×2 (07:46→21:27)
[2018-03-11] MEDS: Hydrochlorothiazide 25 MG TAB PO SCH (07:46)
[2018-03-11] MEDS ORDERED: chlordiazePOXIDE HCl 5 MG CAP PO SCH (15:00)
--- NOTE | 2018-03-11 15:37 | PDOC.PN ---
- Subjective Encounter Start Date: 03/11/18 Encounter Start Time: 11:20 Essentially non-verbal. - Objective Vital Signs & Weight: Vital Signs (12 hours) Temp Pulse Pulse Pulse Resp BP BP 03/11/18 12:05 121/71 03/11/18 11:37 97.6 F 66 17 03/11/18 08:55 63 65 134/79 03/11/18 08:05 109/61 03/11/18 07:45 76 109/61 03/11/18 07:30 03/11/18 07:28 99.1 F 76 16 03/11/18 04:00 98.6 F 85 22 H 131/73 BP BP Pulse Ox 03/11/18 12:05 03/11/18 11:37 121/71 96 03/11/18 08:55 117/71 03/11/18 08:05 03/11/18 07:45 03/11/18 07:30 99 03/11/18 07:28 109/61 99 03/11/18 04:00 131/73 95 Weight Admit Weight 134 lb 14.766 oz Weight 116 lb 3 oz Most Recent Monitor Data Heart Rate from ECG 66 NIBP 144/68 NIBP BP-Mean 99 Respiration from ECG 22 SpO2 99 I&O: 03/10/18 03/11/18 03/12/18 06:59 06:59 06:59 Intake Total 900 95 300 Balance 900 95 300 Result Diagrams: 03/10/18 05:40 03/10/18 05:40 Phys Exam - Physical Examination Constitutional: NAD Respiratory: no wheezing, no rales, no rhonchi, clear to auscultation bilateral Cardiovascular: RRR, no significant murmur, no rub Gastrointestinal: soft, non-tender, no distention, positive bowel sounds Musculoskeletal: no edema Expressive dysphagia. Psychiatric: normal affect Dx/Plan (1) CVA (cerebral vascular accident) Code(s): I63.9 - CEREBRAL INFARCTION, UNSPECIFIED Status: Acute Comment: Had TPA and mechanical extraction of thrombus. Primary residual is the expressive dysphasia. Has some dysphagia as well. Continue statin. Add ASA. Continue with therapies. Referal sent to inpatient rehab. (2) Expressive dysphasia Code(s): R47.02 - DYSPHASIA Status: Acute Comment: Using several words, but still very challenged. (3) Hypertension Code(s): I10 - ESSENTIAL (PRIMARY) HYPERTENSION Status: Acute Comment: Much improved. Started Amlodipine, HCTZ, Metoprolol scheduled. (4) Alcohol withdrawal delirium, acute, hyperactive Code(s): F10.231 - ALCOHOL DEPENDENCE WITH WITHDRAWAL DELIRIUM Status: Acute Comment: Thiamine, Folate, scheduled Librium and PRN ativan. Decreasing the Librium to 10 mg as he appears to be much better. (5) Dysphagia Code(s): R13.10 - DYSPHAGIA, UNSPECIFIED Status: Acute Comment: Patient failed the MBS. Will likely need PEG. Will discuss with patient and family. - Plan * Need to work toward PEG and then rehab. WD symptoms appear to be much improved.
[2018-03-11] MEDS: Lorazepam 1 MG TAB PO PRN (15:57)
--- NOTE | 2018-03-11 16:01 | RAD ---
MODIFIED BARIUM SWALLOW PERFORMED WITH SPEECH THERAPIST: HISTORY: Dysphagia. Feeding difficulty. The patient has a history of a stroke. The patient was given thin barium and honey, nectar, and pudding textures, which showed aspiration wi th several of the consistencies. Penetration was only demonstrated with the thicker pudding, but onl y a small amount of pudding was given. The exam was terminated at that time. IMPRESSION: Aspiration with various materials. POS: [facility]
--- NOTE | 2018-03-11 16:39 | RAD ---
KUB: HISTORY: Dobhoff tube placement. COMPARISON: Prior day's study. FINDINGS: A Dobhoff feeding tube is seen. The tip of the tube is in the fundus of the stomach. IMPRESSION: Dobhoff feeding tube with the tip in the fundus of the stomach. POS: [facility]
[2018-03-11] MEDS: Atorvastatin Calcium 40 MG TAB PO SCH (21:27)
[2018-03-12 06:25] LABS: Anion Gap 14 mmol/L (10-20); BUN (Urea Nitrogen) 52 mg/dL (8.4-25.7); Calc. Creatinine Clearance 43 mL/min (70-130); Calcium 9.5 mg/dL (7.8-10.44); Carbon Dioxide 26 mmol/L (23-31); Chloride 97 mmol/L (98-107); Estimated GFR-MDRD 68; Glucose 105 mg/dL (80-115); Potassium 3.6 mmol/L (3.5-5.1); Sodium 133 mmol/L (136-145)
--- NOTE | 2018-03-12 08:56 | PDOC.PN ---
- Subjective Encounter Start Date: 03/12/18 Encounter Start Time: 08:40 Doing well. Speech improved, but still minimally communicative. - Objective Vital Signs & Weight: Vital Signs (12 hours) Temp Pulse Resp BP BP Pulse Ox 03/12/18 08:00 97.8 F 84 18 128/84 96 03/12/18 04:00 98.5 F 78 18 125/76 125/76 95 03/12/18 00:00 98.7 F 85 16 132/77 96 Weight Admit Weight 134 lb 14.766 oz Weight 116 lb 3 oz Most Recent Monitor Data Heart Rate from ECG 66 NIBP 144/68 NIBP BP-Mean 99 Respiration from ECG 22 SpO2 99 I&O: 03/11/18 03/12/18 03/13/18 06:59 06:59 06:59 Intake Total 95 390 Balance 95 390 Result Diagrams: 03/10/18 05:40 03/12/18 05:17 Phys Exam - Physical Examination Constitutional: NAD Respiratory: no wheezing, no rales, no rhonchi, clear to auscultation bilateral Cardiovascular: RRR, no significant murmur, no rub Gastrointestinal: soft, non-tender, no distention, positive bowel sounds Musculoskeletal: no edema Expressive dysphasia. Skin: normal turgor Dx/Plan (1) CVA (cerebral vascular accident) Code(s): I63.9 - CEREBRAL INFARCTION, UNSPECIFIED Status: Acute Comment: Had TPA and mechanical extraction of thrombus. Primary residual is the expressive dysphasia. Has some dysphagia as well. Continue statin. Add ASA. Continue with therapies. Referal sent to inpatient rehab. (2) Expressive dysphasia Code(s): R47.02 - DYSPHASIA Status: Acute Comment: Using several words, but still very challenged. Appears to be improving. (3) Hypertension Code(s): I10 - ESSENTIAL (PRIMARY) HYPERTENSION Status: Acute Comment: Much improved. Started Amlodipine, HCTZ, Metoprolol scheduled. (4) Alcohol withdrawal delirium, acute, hyperactive Code(s): F10.231 - ALCOHOL DEPENDENCE WITH WITHDRAWAL DELIRIUM Status: Acute Comment: Thiamine, Folate, scheduled Librium and PRN ativan. Will discontinue the librium. (5) Dysphagia Code(s): R13.10 - DYSPHAGIA, UNSPECIFIED Status: Acute Comment: Patient failed the MBS. He is on modified diet now. He ate about 90% of breakfast and drank his juice and milk. Encouraged that he may be able to do better as be remove the librium entirely in light of the resolving WD symptoms. I discussed the possibility of a PEG. I think he understands the situation adequately and he is amenable to a PEG if it becomes necessary. I think he can consent for himself. He has had two DHT's placed and both were pulled out. Unclear if that was accidental or intentional. Nursing believes it was accidentally pulled out when he was eating. (6) Dehydration Code(s): E86.0 - DEHYDRATION Status: Acute Comment: His intake has been poor until this morning. He has not been able to maintain a DHT. BUN is up today. Suspect dehyrating. Will give IV fluids today. Encouraged better PO intake. - Plan * Monitor intake today. If inadequate, consider PEG tomorrow. If ok, can likely to go rehab if approved.
[2018-03-12] MEDS: Sodium Chloride 0.45% 1,000 ML IV SCH ×2 (09:13→18:14)
[2018-03-12] MEDS: Enoxaparin Sodium 40 MG/0.4 ML SYRINGE SC SCH (09:14)
[2018-03-12] MEDS: Amlodipine 10 MG TAB PO SCH (09:15)
[2018-03-12] MEDS: Metoprolol Tartrate 25 MG TAB PO SCH ×2 (09:15→20:34)
[2018-03-12] MEDS: Hydrochlorothiazide 25 MG TAB PO SCH (09:15)
[2018-03-12] MEDS: Folic Acid 1 MG TAB PO SCH (09:15)
[2018-03-12] MEDS: Aspirin 325 MG TAB PO SCH (09:15)
[2018-03-12] MEDS: Atorvastatin Calcium 40 MG TAB PO SCH (20:34)
[2018-03-13] MEDS: Sodium Chloride 0.45% 1,000 ML IV SCH ×2 (00:02→15:15)
[2018-03-13] MEDS: Enoxaparin Sodium 40 MG/0.4 ML SYRINGE SC SCH (08:36)
[2018-03-13] MEDS: Amlodipine 10 MG TAB PO SCH (08:36)
[2018-03-13] MEDS: Hydrochlorothiazide 25 MG TAB PO SCH (08:37)
[2018-03-13] MEDS: Metoprolol Tartrate 25 MG TAB PO SCH ×2 (08:37→20:13)
[2018-03-13] MEDS: Folic Acid 1 MG TAB PO SCH (08:37)
[2018-03-13] MEDS: Aspirin 325 MG TAB PO SCH (08:37)
--- NOTE | 2018-03-13 12:35 | PDOC.PN ---
- Subjective Encounter Start Date: 03/13/18 Encounter Start Time: 10:00 Subjective: no sob, awake, knows his girlfriend is at bedside -: didn't like much of his breakfast -: ate well his lunch and dinner yesterday per staff - Objective MAR Reviewed: Yes Vital Signs & Weight: Vital Signs (12 hours) Temp Pulse Pulse Pulse Resp BP BP 03/13/18 11:45 98 F 66 16 03/13/18 09:29 64 03/13/18 08:40 80 83 220/98 H 03/13/18 08:36 68 155/88 H 03/13/18 08:27 03/13/18 08:04 03/13/18 08:00 97.5 F L 70 16 03/13/18 07:39 03/13/18 03:40 98.9 F 62 18 BP BP Pulse Ox 03/13/18 11:45 148/98 H 97 03/13/18 09:29 170/96 H 03/13/18 08:40 158/94 H 03/13/18 08:36 03/13/18 08:27 98 03/13/18 08:04 98 03/13/18 08:00 155/88 H 98 03/13/18 07:39 98 03/13/18 03:40 168/86 H 98 Weight Admit Weight 134 lb 14.766 oz Weight 116 lb 3 oz Most Recent Monitor Data Heart Rate from ECG 66 NIBP 144/68 NIBP BP-Mean 99 Respiration from ECG 22 SpO2 99 I&O: 03/12/18 03/13/18 03/14/18 06:59 06:59 06:59 Intake Total 390 300 Balance 390 300 Result Diagrams: 03/10/18 05:40 03/12/18 05:17 Phys Exam - Physical Examination HEENT: PERRLA, moist MMs Neck: no JVD, supple Respiratory: no wheezing, no rales Cardiovascular: RRR, no significant murmur Gastrointestinal: soft, non-tender, positive bowel sounds Musculoskeletal: no edema, pulses present Neurological: non-focal, moves all 4 limbs Dx/Plan (1) CVA (cerebral vascular accident) Code(s): I63.9 - CEREBRAL INFARCTION, UNSPECIFIED Status: Acute Comment: Had TPA and mechanical extraction of thrombus. Primary residual is the expressive dysphasia. Has some dysphagia as well. Continue statin. Add ASA. Continue with therapies. (2) Dyslipidemia Code(s): E78.5 - HYPERLIPIDEMIA, UNSPECIFIED Status: Chronic (3) Aphasia Code(s): R47.01 - APHASIA Status: Acute (4) Dysphagia Code(s): R13.10 - DYSPHAGIA, UNSPECIFIED Status: Acute (5) Hypertension Code(s): I10 - ESSENTIAL (PRIMARY) HYPERTENSION Status: Acute Qualifiers: Hypertension type: essential hypertension Qualified Code(s): I10 - Essential (primary) hypertension Comment: Much improved. On Amlodipine, HCTZ, Metoprolol scheduled. - Plan hemo/neuro stable -: reduce iv fluids -: on asp, lipitor -: ambulate well with rw -: awaiting placement, still has some cognitive dysfunction, dysphagia and aph * . Review of Systems - Medications/Allergies Allergies/Adverse Reactions: Allergies Allergy/AdvReac Type Severity Reaction Status Date / Time No Known Allergies Allergy Unverified 03/06/18 19:32 Medications: Current Medications Amlodipine Besylate (Norvasc) 10 mg PO DAILY [facility] Last Admin: 03/13/18 08:36 Dose: 10 mg Aspirin (Aspirin) 325 mg PO DAILY [facility] Last Admin: 03/13/18 08:37 Dose: 325 mg Atorvastatin Calcium (Lipitor) 80 mg PO HS [facility] Last Admin: 03/12/18 20:34 Dose: 80 mg Enoxaparin Sodium (Lovenox) 40 mg SC 0900 [facility] Last Admin: 03/13/18 08:36 Dose: 40 mg Folic Acid (Folvite) 1 mg PO DAILY [facility] Last Admin: 03/13/18 08:37 Dose: 1 mg Hydralazine HCl (Apresoline) 20 mg SLOW IVP Q15MIN PRN PRN Reason: SBP Greater Than 180 Last Admin: 03/09/18 08:41 Dose: 20 mg Hydrochlorothiazide (Hydrochlorothiazide) 25 mg PO DAILY [facility] Last Admin: 03/13/18 08:37 Dose: 25 mg Sodium Chloride (1/2 Normal Saline) 1,000 mls @ 50 mls/hr IV .Q20H [facility] Labetalol HCl (Normodyne) 20 mg SLOW IVP Q10MIN PRN PRN Reason: SBP Greater Than 180 Last Admin: 03/10/18 15:52 Dose: 20 mg Lorazepam (Ativan) 1 mg PO Q4H PRN PRN Reason: Anxiety/Agitation Last Admin: 03/11/18 15:57 Dose: 1 mg Lorazepam (Ativan) 2 mg SLOW IVP Q6H PRN PRN Reason: Anxiety/Agitation Last Admin: 03/09/18 20:20 Dose: 2 mg Metoprolol Tartrate (Lopressor) 25 mg PO BID [facility] Last Admin: 03/13/18 08:37 Dose: 25 mg Sodium Chloride (Flush - Normal Saline) 10 ml IVF Q12HR [facility] Last Admin: 03/13/18 08:37 Dose: Not Given Sodium Chloride (Flush - Normal Saline) 10 ml IVF PRN PRN PRN Reason: Saline Flush Thiamine HCl (Thiamine) 100 mg PO DAILY [facility] Last Admin: 03/13/18 08:37 Dose: 100 mg
--- NOTE | 2018-03-13 13:47 | PQF ---
SAYRA DEL RIO, JENIFER SIDDIQUI MD [id number] [id number] CLINICAL DOCUMENTATION IMPROVEMENT CLARIFICATION FORM: ICD-10 Updated PLEASE DO AN ADDENDUM TO THE PROGRESS NOTE WITH ANY DOCUMENTATION UPDATES OR ADDITIONS AND CARRY THROUGH TO DC SUMMARY. THANK YOU. Date: 03-13-18 ATTN: DR. DUDLEY Please exercise your independent, professional judgment in responding to the clarification form. Clinical indicators are provided on the bottom of this form for your review Please check appropriate box(s): [ ] Protein Calorie Malnutrition: [ ] Mild [ ] Moderate [ ] Severe [ ] Other Malnutrition (please specify) __ [ ] Underweight without malnutrition [ ] Cachexia [ x] Other diagnosis _Has ac cva and is slowly increasing his oral intake. [ ] Unable to determine In addition, please specify: Present on Admission (POA): [ ] Yes [ ] No [ ] Unable to determine CLINICAL INDICATORS - SIGNS / SYMPTOMS / LABS BMI 17.6 DIETARY CONSULT: 19% wt loss compared to admit wt 69% last 4 meals consumed and girlfriend report of limited PO intake RISK FACTORS H&P: ACUTE THROMBUS W/ LEFT MCA DRINKS 2-3 CANS OF BEER PER DAY TREATMENT: 07/03/18: Dietary consult Dietary Recommendations: 1. Continue Heart Healthy/purree/nectar thick. Texture/consistency per DIRECTOR PUBLIC SERVICE. 2. If patient safe for PO intake, recommend a Heart Healthy diet type with Ensure Enlive BID. 3. Consider appetite stimulant. 4. If unable to take PO, recommend initiating Jevity 1.2 and advancing as tolerated to goal rate of 60 mL/hr with 95 mL water flushes every 4 hours once IVF is off. Moderate Malnutrition (in acute illness) Energy Intake: <75% of estimated energy requirement for > 7 days Weight Loss: 1-2%/1 week; 5%/ 1 month; 7.5%/3 months Other: mild body fat loss; mild muscle mass loss; mild fluid accumulation; Severe Malnutrition (in acute illness) Energy Intake: < 50% of estimated energy requirement for > 5 days Weight Loss: >1-2%/1 week; >5%/1 month; >7.5%/3 months Other: moderate body fat loss; moderate muscle mass loss; moderate- severe fluid accumulation; measurably reduced eeg tech strength Moderate Malnutrition (in chronic illness) Energy Intake: <75% of estimated energy requirement for >1 month Weight Loss: 5%/1 month; 7.5%/3 months; 10%/6 months; 20%/1 year Other: mild body fat loss; mild muscle mass loss; mild fluid accumulation Severe Malnutrition (in chronic illness) Energy Intake: <75% of estimated energy requirement for >1 month Weight Loss: >5%/1 month; >7.5%/3 months; >10%/6 months; >20%/1 year Other: severe body fat loss; severe muscle mass loss; severe fluid accumulation; measurably reduced eeg tech strength THANK YOU, SUE (This form is maintained as a part of the permanent medical record) 2015 [employer] All Rights Reserved Sue Correa RN, BS [email or web address] [employer] [facility]
[2018-03-13] MEDS: Atorvastatin Calcium 40 MG TAB PO SCH (20:13)
[2018-03-14] MEDS: Sodium Chloride 0.45% 1,000 ML IV SCH (01:01)
[2018-03-14] MEDS: Lorazepam 1 MG TAB PO PRN ×2 (04:36→09:02)
[2018-03-14] MEDS: Aspirin 325 MG TAB PO SCH (09:01)
[2018-03-14] MEDS: Metoprolol Tartrate 25 MG TAB PO SCH ×2 (09:01→21:48)
[2018-03-14] MEDS: Hydrochlorothiazide 25 MG TAB PO SCH (09:01)
[2018-03-14] MEDS: Enoxaparin Sodium 40 MG/0.4 ML SYRINGE SC SCH (09:02)
[2018-03-14] MEDS: Amlodipine 10 MG TAB PO SCH (09:02)
[2018-03-14] MEDS: Folic Acid 1 MG TAB PO SCH (09:02)
[2018-03-14 09:57] LABS: #Basophils 0.1 thou/uL (0.0-0.2); #Eosinphils 0.3 thou/uL (0.0-0.7); #Lymphocytes 2.7 thou/uL (1.20-3.40); #Monocytes 1.1 thou/uL (0.11-0.59); #Neutrophils 5.2 thou/uL (1.40-6.50); %Basophils 0.8 % (0.0-1.0); %Eosinophils 3.6 % (0.0-10.0); %Lymphocytes 28.5 % (21.0-51.0); %Monocytes 11.6 % (0.0-10.0); %Neutrophils 55.5 % (42.0-75.0); Hemoglobin 17.2 g/dL (14.0-18.0); Mean Corpuscular HGB CONC 33.5 g/dL (32.0-36.0); Mean Corpuscular Hemoglobin 32.6 pg (27.0-31.0); Mean Corpuscular Volume 97.5 fL (78.0-98.0); Mean Platelet Volume 7.7 fL (7.4-10.4); Platelet Count 321 thou/uL (130-400); Red Blood Cell (RBC) Count 5.26 mill/uL (4.70-6.10); White Blood Cell (WBC) Count 9.4 thou/uL (4.8-10.8)
[2018-03-14 10:50] LABS: Anion Gap 18 mmol/L (10-20); BUN (Urea Nitrogen) 20 mg/dL (8.4-25.7); Calc. Creatinine Clearance 65 mL/min (70-130); Calcium 10.3 mg/dL (7.8-10.44); Carbon Dioxide 22 mmol/L (23-31); Chloride 93 mmol/L (98-107); Estimated GFR-MDRD Greater than 90; Glucose 111 mg/dL (80-115); Potassium 3.8 mmol/L (3.5-5.1); Sodium 129 mmol/L (136-145)
--- NOTE | 2018-03-14 11:53 | EKG ---
Test Reason : Blood Pressure : / mmHG Vent. Rate : 080 BPM Atrial Rate : 081 BPM P-R Int : 174 ms QRS Dur : 100 ms QT Int : 372 ms P-R-T Axes : 035 023 021 degrees QTc Int : 429 ms Poor data quality, interpretation may be adversely affected Normal sinus rhythm Possible Left atrial enlargement Left ventricular hypertrophy ST elevation, consider early repolarization, pericarditis, or injury Abnormal ECG Confirmed by ALESSANDRO MUELLER DO ([id number]), assistant production editor COBY ALEMAN ([id number]) on 03/14/2018 11:52:55 AM Referred By: Confirmed By:ALESSANDRO MUELLRE DO
--- NOTE | 2018-03-14 14:02 | PDOC.PN ---
- Subjective Encounter Start Date: 03/14/18 Encounter Start Time: 13:30 Subjective: awake, eating well per staff - Objective MAR Reviewed: Yes Vital Signs & Weight: Vital Signs (12 hours) Temp Pulse Resp BP BP Pulse Ox 03/14/18 12:00 141/79 H 03/14/18 11:26 97.8 F 64 16 141/79 H 99 03/14/18 09:02 67 164/88 H 03/14/18 08:00 164/88 H 96 03/14/18 07:25 97.9 F 67 18 164/88 H 96 03/14/18 04:00 97.6 F 63 18 151/78 H 98 Weight Admit Weight 134 lb 14.766 oz Weight 105 lb 1.6 oz Most Recent Monitor Data Heart Rate from ECG 66 NIBP 144/68 NIBP BP-Mean 99 Respiration from ECG 22 SpO2 99 I&O: 03/13/18 03/14/18 03/15/18 06:59 06:59 06:59 Intake Total 300 Balance 300 Result Diagrams: 03/14/18 09:41 03/14/18 09:41 Phys Exam - Physical Examination HEENT: PERRLA, moist MMs Neck: no JVD, supple Respiratory: no wheezing, no rales Cardiovascular: RRR, no significant murmur Gastrointestinal: soft, non-tender, positive bowel sounds Musculoskeletal: no edema, pulses present Neurological: non-focal, moves all 4 limbs Dx/Plan (1) CVA (cerebral vascular accident) Code(s): I63.9 - CEREBRAL INFARCTION, UNSPECIFIED Status: Acute Comment: Had TPA and mechanical extraction of thrombus. Primary residual is the expressive dysphasia. Has some dysphagia as well. Continue statin. Add ASA. Continue with therapies. (2) Dyslipidemia Code(s): E78.5 - HYPERLIPIDEMIA, UNSPECIFIED Status: Chronic (3) Aphasia Code(s): R47.01 - APHASIA Status: Acute (4) Dysphagia Code(s): R13.10 - DYSPHAGIA, UNSPECIFIED Status: Acute (5) Hypertension Code(s): I10 - ESSENTIAL (PRIMARY) HYPERTENSION Status: Acute Qualifiers: Hypertension type: essential hypertension Qualified Code(s): I10 - Essential (primary) hypertension Comment: Much improved. On Amlodipine, HCTZ, Metoprolol scheduled. - Plan awaiting placement -: is tolerating oral diet -: on asp, lipitor -: to ambulate with PT as tolerated * . Review of Systems - Medications/Allergies Allergies/Adverse Reactions: Allergies Allergy/AdvReac Type Severity Reaction Status Date / Time No Known Allergies Allergy Unverified 03/06/18 19:32 Medications: Current Medications Amlodipine Besylate (Norvasc) 10 mg PO DAILY [facility] Last Admin: 03/14/18 09:02 Dose: 10 mg Aspirin (Aspirin) 325 mg PO DAILY [facility] Last Admin: 03/14/18 09:01 Dose: 325 mg Atorvastatin Calcium (Lipitor) 80 mg PO HS [facility] Last Admin: 03/13/18 20:13 Dose: 80 mg Enoxaparin Sodium (Lovenox) 40 mg SC 0900 [facility] Last Admin: 03/14/18 09:02 Dose: 40 mg Folic Acid (Folvite) 1 mg PO DAILY [facility] Last Admin: 03/14/18 09:02 Dose: 1 mg Hydralazine HCl (Apresoline) 20 mg SLOW IVP Q15MIN PRN PRN Reason: SBP Greater Than 180 Last Admin: 03/09/18 08:41 Dose: 20 mg Hydrochlorothiazide (Hydrochlorothiazide) 25 mg PO DAILY [facility] Last Admin: 03/14/18 09:01 Dose: 25 mg Labetalol HCl (Normodyne) 20 mg SLOW IVP Q10MIN PRN PRN Reason: SBP Greater Than 180 Last Admin: 03/10/18 15:52 Dose: 20 mg Lorazepam (Ativan) 1 mg PO Q4H PRN PRN Reason: Anxiety/Agitation Last Admin: 03/14/18 09:02 Dose: 1 mg Lorazepam (Ativan) 2 mg SLOW IVP Q6H PRN PRN Reason: Anxiety/Agitation Last Admin: 03/09/18 20:20 Dose: 2 mg Metoprolol Tartrate (Lopressor) 50 mg PO BID [facility] Last Admin: 03/14/18 09:01 Dose: 50 mg Sodium Chloride (Flush - Normal Saline) 10 ml IVF Q12HR [facility] Last Admin: 03/14/18 09:03 Dose: Not Given Sodium Chloride (Flush - Normal Saline) 10 ml IVF PRN PRN PRN Reason: Saline Flush Thiamine HCl (Thiamine) 100 mg PO DAILY [facility] Last Admin: 03/14/18 09:02 Dose: 100 mg
[2018-03-14] MEDS ORDERED: Ibuprofen 200 MG TAB PO PRN (14:51)
[2018-03-14] MEDS ORDERED: Acetaminophen 325 MG TAB PO PRN (14:52)
[2018-03-14] MEDS ORDERED: HYDROcodone/Acetaminophen 7.5/325 mg Tablet PO PRN (14:53)
[2018-03-14] MEDS ORDERED: Fleet Enema 133 ML BOT FS PRN (14:56)
[2018-03-14] MEDS ORDERED: Bisacodyl 10 MG SUPP PR SCH (15:00)
[2018-03-14] MEDS: Atorvastatin Calcium 40 MG TAB PO SCH (21:48)
[2018-03-15] MEDS: Enoxaparin Sodium 40 MG/0.4 ML SYRINGE SC SCH ×2 (08:00→08:10)
[2018-03-15] MEDS: Amlodipine 10 MG TAB PO SCH ×2 (08:01→08:10)
[2018-03-15] MEDS: Metoprolol Tartrate 25 MG TAB PO SCH ×3 (08:01→20:40)
[2018-03-15] MEDS: Hydrochlorothiazide 25 MG TAB PO SCH ×2 (08:01→08:10)
[2018-03-15] MEDS: Aspirin 325 MG TAB PO SCH ×2 (08:01→08:10)
[2018-03-15] MEDS: Folic Acid 1 MG TAB PO SCH ×2 (08:01→08:10)
--- NOTE | 2018-03-15 13:51 | PDOC.PN ---
- Subjective Encounter Start Date: 03/15/18 Encounter Start Time: 12:25 Subjective: awake, no sob or new weakness -: communicates slowly -: is not eating much today per staff - Objective MAR Reviewed: Yes Vital Signs & Weight: Vital Signs (12 hours) Temp Pulse Resp BP BP Pulse Ox 03/15/18 12:00 164/90 H 03/15/18 11:11 98.2 F 80 16 164/90 H 97 03/15/18 08:10 83 03/15/18 08:00 137/84 94 L 03/15/18 07:14 97.9 F 83 16 137/84 96 Weight Admit Weight 134 lb 14.766 oz Weight 105 lb 1.6 oz Most Recent Monitor Data Heart Rate from ECG 66 NIBP 144/68 NIBP BP-Mean 99 Respiration from ECG 22 SpO2 99 I&O: 03/14/18 03/15/18 03/16/18 06:59 06:59 06:59 Intake Total 800 180 Balance 800 180 Result Diagrams: 03/14/18 09:41 03/14/18 09:41 Phys Exam - Physical Examination HEENT: PERRLA, moist MMs Neck: no JVD, supple Respiratory: no wheezing, no rales Cardiovascular: RRR, no significant murmur Gastrointestinal: soft, non-tender, positive bowel sounds Musculoskeletal: no edema, pulses present Neurological: moves all 4 limbs dysarthria, dysphasia Psychiatric: A&O x 3 Dx/Plan (1) CVA (cerebral vascular accident) Code(s): I63.9 - CEREBRAL INFARCTION, UNSPECIFIED Status: Acute Comment: Had TPA and mechanical extraction of thrombus. Primary residual is the expressive dysphasia. Has some dysphagia as well. Continue statin. Add ASA. Continue with therapies. (2) Dyslipidemia Code(s): E78.5 - HYPERLIPIDEMIA, UNSPECIFIED Status: Chronic (3) Aphasia Code(s): R47.01 - APHASIA Status: Acute (4) Dysphagia Code(s): R13.10 - DYSPHAGIA, UNSPECIFIED Status: Acute (5) Hypertension Code(s): I10 - ESSENTIAL (PRIMARY) HYPERTENSION Status: Acute Qualifiers: Hypertension type: essential hypertension Qualified Code(s): I10 - Essential (primary) hypertension Comment: Much improved. On Amlodipine, HCTZ, Metoprolol scheduled. - Plan if oral intake is poor will need peg -: hemo/neurostable -: awaiting placement -: asp, lipitor, lopressor, hctz -: continue to mobilize with PT and speech therapies * . Review of Systems - Medications/Allergies Allergies/Adverse Reactions: Allergies Allergy/AdvReac Type Severity Reaction Status Date / Time No Known Allergies Allergy Unverified 03/06/18 19:32 Medications: Current Medications Amlodipine Besylate (Norvasc) 10 mg PO DAILY [facility] Last Admin: 03/15/18 08:10 Dose: Not Given Aspirin (Aspirin) 325 mg PO DAILY [facility] Last Admin: 03/15/18 08:10 Dose: Not Given Atorvastatin Calcium (Lipitor) 80 mg PO HS [facility] Last Admin: 03/14/18 21:48 Dose: 80 mg Enoxaparin Sodium (Lovenox) 40 mg SC 09 [facility] Last Admin: 03/15/18 08:10 Dose: Not Given Folic Acid (Folvite) 1 mg PO DAILY [facility] Last Admin: 03/15/18 08:10 Dose: Not Given Hydralazine HCl (Apresoline) 20 mg SLOW IVP Q15MIN PRN PRN Reason: SBP Greater Than 180 Last Admin: 03/09/18 08:41 Dose: 20 mg Hydrochlorothiazide (Hydrochlorothiazide) 25 mg PO DAILY [facility] Last Admin: 03/15/18 08:10 Dose: Not Given Labetalol HCl (Normodyne) 20 mg SLOW IVP Q10MIN PRN PRN Reason: SBP Greater Than 180 Last Admin: 03/10/18 15:52 Dose: 20 mg Lorazepam (Ativan) 1 mg PO Q4H PRN PRN Reason: Anxiety/Agitation Last Admin: 03/14/18 09:02 Dose: 1 mg Lorazepam (Ativan) 2 mg SLOW IVP Q6H PRN PRN Reason: Anxiety/Agitation Last Admin: 03/09/18 20:20 Dose: 2 mg Metoprolol Tartrate (Lopressor) 50 mg PO BID [facility] Last Admin: 03/15/18 08:10 Dose: Not Given Sodium Chloride (Flush - Normal Saline) 10 ml IVF Q12HR [facility] Last Admin: 03/15/18 08:02 Dose: Not Given Sodium Chloride (Flush - Normal Saline) 10 ml IVF PRN PRN PRN Reason: Saline Flush Thiamine HCl (Thiamine) 100 mg PO DAILY [facility] Last Admin: 03/15/18 08:10 Dose: Not Given
[2018-03-15] MEDS: Atorvastatin Calcium 40 MG TAB PO SCH (20:40)
[2018-03-16] MEDS: Folic Acid 1 MG TAB PO SCH (08:10)
[2018-03-16] MEDS: Metoprolol Tartrate 25 MG TAB PO SCH ×2 (08:10→19:54)
[2018-03-16] MEDS: Aspirin 325 MG TAB PO SCH (08:10)
[2018-03-16] MEDS: Amlodipine 10 MG TAB PO SCH (08:11)
[2018-03-16] MEDS: Enoxaparin Sodium 40 MG/0.4 ML SYRINGE SC SCH (08:11)
--- NOTE | 2018-03-16 11:24 | PDOC.PN ---
- Subjective Encounter Start Date: 03/16/18 Encounter Start Time: 10:40 Subjective: awake, not in distress -: ate his lunch and dinner well with family - Objective MAR Reviewed: Yes Vital Signs & Weight: Vital Signs (12 hours) Temp Pulse Resp BP BP Pulse Ox 03/16/18 08:11 83 146/79 H 03/16/18 08:00 146/79 H 96 03/16/18 07:34 97.8 F 83 18 146/79 H 96 03/16/18 04:00 97.6 F 81 18 142/80 H 142/80 H 96 03/16/18 00:00 98.4 F 69 18 137/80 137/80 96 Weight Admit Weight 134 lb 14.766 oz Weight 105 lb 1 oz Most Recent Monitor Data Heart Rate from ECG 66 NIBP 144/68 NIBP BP-Mean 99 Respiration from ECG 22 SpO2 99 I&O: 03/15/18 03/16/18 03/17/18 06:59 06:59 06:59 Intake Total 800 360 180 Balance 800 360 180 Result Diagrams: 03/14/18 09:41 03/14/18 09:41 Phys Exam - Physical Examination HEENT: PERRLA, moist MMs Neck: no JVD, supple Respiratory: no wheezing, no rales Cardiovascular: RRR, no significant murmur Gastrointestinal: soft, non-tender, positive bowel sounds Musculoskeletal: no edema, pulses present Neurological: moves all 4 limbs Dx/Plan (1) CVA (cerebral vascular accident) Code(s): I63.9 - CEREBRAL INFARCTION, UNSPECIFIED Status: Acute Comment: Had TPA and mechanical extraction of thrombus. Primary residual is the expressive dysphasia. Has some dysphagia as well. Continue statin. Add ASA. Continue with therapies. (2) Dyslipidemia Code(s): E78.5 - HYPERLIPIDEMIA, UNSPECIFIED Status: Chronic (3) Aphasia Code(s): R47.01 - APHASIA Status: Acute (4) Dysphagia Code(s): R13.10 - DYSPHAGIA, UNSPECIFIED Status: Acute (5) Hypertension Code(s): I10 - ESSENTIAL (PRIMARY) HYPERTENSION Status: Acute Qualifiers: Hypertension type: essential hypertension Qualified Code(s): I10 - Essential (primary) hypertension Comment: Much improved. On Amlodipine, Metoprolol scheduled. - Plan is eating better, on going speech eval -: hemo/neuro stable -: awaiting placement, may dc anytime if ready -: continue asp, lipitor, lopressor and norvasc -: to ambulate with PT as tolerated * . Review of Systems - Medications/Allergies Allergies/Adverse Reactions: Allergies Allergy/AdvReac Type Severity Reaction Status Date / Time No Known Allergies Allergy Unverified 03/06/18 19:32 Medications: Current Medications Amlodipine Besylate (Norvasc) 10 mg PO DAILY [facility] Last Admin: 03/16/18 08:11 Dose: 10 mg Aspirin (Aspirin) 325 mg PO DAILY [facility] Last Admin: 03/16/18 08:10 Dose: 325 mg Atorvastatin Calcium (Lipitor) 80 mg PO HS [facility] Last Admin: 03/15/18 20:40 Dose: 80 mg Enoxaparin Sodium (Lovenox) 40 mg SC 09 [facility] Last Admin: 03/16/18 08:11 Dose: 40 mg Folic Acid (Folvite) 1 mg PO DAILY [facility] Last Admin: 03/16/18 08:10 Dose: 1 mg Hydralazine HCl (Apresoline) 20 mg SLOW IVP Q15MIN PRN PRN Reason: SBP Greater Than 180 Last Admin: 03/09/18 08:41 Dose: 20 mg Labetalol HCl (Normodyne) 20 mg SLOW IVP Q10MIN PRN PRN Reason: SBP Greater Than 180 Last Admin: 03/10/18 15:52 Dose: 20 mg Lorazepam (Ativan) 1 mg PO Q4H PRN PRN Reason: Anxiety/Agitation Last Admin: 03/14/18 09:02 Dose: 1 mg Lorazepam (Ativan) 2 mg SLOW IVP Q6H PRN PRN Reason: Anxiety/Agitation Last Admin: 03/09/18 20:20 Dose: 2 mg Metoprolol Tartrate (Lopressor) 50 mg PO BID [facility] Last Admin: 03/16/18 08:10 Dose: 50 mg Sodium Chloride (Flush - Normal Saline) 10 ml IVF Q12HR [facility] Last Admin: 03/16/18 08:11 Dose: Not Given Sodium Chloride (Flush - Normal Saline) 10 ml IVF PRN PRN PRN Reason: Saline Flush Thiamine HCl (Thiamine) 100 mg PO DAILY [facility] Last Admin: 03/16/18 08:10 Dose: 100 mg
[2018-03-16 12:57] VITALS: BMI 16.9
[2018-03-16] MEDS: Lorazepam 1 MG TAB PO PRN (19:53)
[2018-03-16] MEDS: Atorvastatin Calcium 40 MG TAB PO SCH (19:54)
[2018-03-17] MEDS: Aspirin 325 MG TAB PO SCH (09:13)
[2018-03-17] MEDS: Metoprolol Tartrate 25 MG TAB PO SCH ×2 (09:13→20:32)
[2018-03-17] MEDS: Enoxaparin Sodium 40 MG/0.4 ML SYRINGE SC SCH (09:14)
[2018-03-17] MEDS: Amlodipine 10 MG TAB PO SCH (09:14)
[2018-03-17] MEDS: Folic Acid 1 MG TAB PO SCH (09:14)
--- NOTE | 2018-03-17 12:01 | PDOC.PN ---
- Subjective Encounter Start Date: 03/17/18 Encounter Start Time: 11:00 Subjective: no sob or pain -: awake, responds to verbal stimuli minimally -: eats well when family is around - Objective MAR Reviewed: Yes Vital Signs & Weight: Vital Signs (12 hours) Temp Pulse Resp BP BP Pulse Ox 03/17/18 09:14 70 03/17/18 08:00 92/60 03/17/18 07:49 97.4 F L 70 20 92/60 97 Weight Admit Weight 134 lb 14.766 oz Weight 105 lb 1 oz Most Recent Monitor Data Heart Rate from ECG 66 NIBP 144/68 NIBP BP-Mean 99 Respiration from ECG 22 SpO2 99 I&O: 03/16/18 03/17/18 03/18/18 06:59 06:59 06:59 Intake Total 360 255 200 Balance 360 255 200 Result Diagrams: 03/14/18 09:41 03/14/18 09:41 Phys Exam - Physical Examination HEENT: PERRLA, moist MMs Neck: no JVD, supple Respiratory: no wheezing, no rales Cardiovascular: RRR, no significant murmur Gastrointestinal: soft, non-tender, positive bowel sounds Musculoskeletal: no edema, pulses present Neurological: non-focal, moves all 4 limbs has cognitive defecits, follows simple verbal stimuli, dysarthria Dx/Plan (1) CVA (cerebral vascular accident) Code(s): I63.9 - CEREBRAL INFARCTION, UNSPECIFIED Status: Acute Comment: s/ p TPA and mechanical extraction of thrombus. Primary residual is the expressive dysphasia. Continue statin and ASA. Continue with therapies. (2) Dyslipidemia Code(s): E78.5 - HYPERLIPIDEMIA, UNSPECIFIED Status: Chronic (3) Aphasia Code(s): R47.01 - APHASIA Status: Acute (4) Dysphagia Code(s): R13.10 - DYSPHAGIA, UNSPECIFIED Status: Acute (5) Hypertension Code(s): I10 - ESSENTIAL (PRIMARY) HYPERTENSION Status: Acute Qualifiers: Hypertension type: essential hypertension Qualified Code(s): I10 - Essential (primary) hypertension Comment: Much improved. On Amlodipine, Metoprolol scheduled. - Plan hemo/neurostable -: awaiting placement, delayed due to insurance approval -: on asp, lipitor, norvasc and lopressor -: to mobilize as tolerated * . Review of Systems - Medications/Allergies Allergies/Adverse Reactions: Allergies Allergy/AdvReac Type Severity Reaction Status Date / Time No Known Allergies Allergy Unverified 03/06/18 19:32 Medications: Current Medications Amlodipine Besylate (Norvasc) 10 mg PO DAILY [facility] Last Admin: 03/17/18 09:14 Dose: 10 mg Aspirin (Aspirin) 325 mg PO DAILY [facility] Last Admin: 03/17/18 09:13 Dose: 325 mg Atorvastatin Calcium (Lipitor) 80 mg PO HS [facility] Last Admin: 03/16/18 19:54 Dose: 80 mg Enoxaparin Sodium (Lovenox) 40 mg SC 09 [facility] Last Admin: 03/17/18 09:14 Dose: 40 mg Folic Acid (Folvite) 1 mg PO DAILY [facility] Last Admin: 03/17/18 09:14 Dose: 1 mg Lorazepam (Ativan) 1 mg PO Q4H PRN PRN Reason: Anxiety/Agitation Last Admin: 03/16/18 19:53 Dose: 1 mg Metoprolol Tartrate (Lopressor) 50 mg PO BID [facility] Last Admin: 03/17/18 09:13 Dose: 50 mg Thiamine HCl (Thiamine) 100 mg PO DAILY [facility] Last Admin: 03/17/18 09:13 Dose: 100 mg
[2018-03-17] MEDS: Atorvastatin Calcium 40 MG TAB PO SCH (20:31)
[2018-03-17] MEDS: Lorazepam 1 MG TAB PO PRN (20:32)
[2018-03-18] MEDS: Enoxaparin Sodium 40 MG/0.4 ML SYRINGE SC SCH (08:23)
[2018-03-18] MEDS: Aspirin 325 MG TAB PO SCH (08:23)
[2018-03-18] MEDS: Metoprolol Tartrate 25 MG TAB PO SCH (08:23)
[2018-03-18] MEDS: Amlodipine 10 MG TAB PO SCH (08:23)
[2018-03-18] MEDS: Folic Acid 1 MG TAB PO SCH (08:23)
--- NOTE | 2018-03-18 10:31 | PDOC.PN ---
- Subjective Encounter Start Date: 03/18/18 Encounter Start Time: 07:45 Subjective: sitting in chair, not in distress -: responds to simple questions and speaks a bit - Objective MAR Reviewed: Yes Vital Signs & Weight: Vital Signs (12 hours) Temp Pulse Resp BP BP Pulse Ox 03/18/18 08:23 77 03/18/18 07:19 97.9 F 77 16 152/85 H 95 03/18/18 04:29 98.1 F 77 18 150/91 H 93 L 03/18/18 04:00 150/91 H Weight Admit Weight 134 lb 14.766 oz Weight 105 lb 1 oz Most Recent Monitor Data Heart Rate from ECG 66 NIBP 144/68 NIBP BP-Mean 99 Respiration from ECG 22 SpO2 99 I&O: 03/17/18 03/18/18 03/19/18 06:59 06:59 06:59 Intake Total 255 570 240 Balance 255 570 240 Result Diagrams: 03/14/18 09:41 03/14/18 09:41 Phys Exam - Physical Examination HEENT: PERRLA, sclera anicteric Neck: no JVD, supple Respiratory: no wheezing, no rales Cardiovascular: RRR, no significant murmur Gastrointestinal: soft, non-tender, positive bowel sounds Musculoskeletal: no edema, pulses present Neurological: non-focal, moves all 4 limbs Dx/Plan (1) CVA (cerebral vascular accident) Code(s): I63.9 - CEREBRAL INFARCTION, UNSPECIFIED Status: Acute Comment: s/ p TPA and mechanical extraction of thrombus. Primary residual is the expressive dysphasia. Continue statin and ASA. Continue with therapies. (2) Dyslipidemia Code(s): E78.5 - HYPERLIPIDEMIA, UNSPECIFIED Status: Chronic (3) Aphasia Code(s): R47.01 - APHASIA Status: Acute Comment: improving (4) Dysphagia Code(s): R13.10 - DYSPHAGIA, UNSPECIFIED Status: Acute Comment: is improving (5) Hypertension Code(s): I10 - ESSENTIAL (PRIMARY) HYPERTENSION Status: Acute Qualifiers: Hypertension type: essential hypertension Qualified Code(s): I10 - Essential (primary) hypertension Comment: Much improved. On Amlodipine, Metoprolol scheduled. - Plan hemo/neurostable -: encourage po intake -: may dc anytime placement is ready -: is on asp, lipitor, norvasc and lopressor -: PT/OT/Speech ongoing evaluations on floor * . Review of Systems - Medications/Allergies Allergies/Adverse Reactions: Allergies Allergy/AdvReac Type Severity Reaction Status Date / Time No Known Allergies Allergy Unverified 03/06/18 19:32 Medications: Current Medications Amlodipine Besylate (Norvasc) 10 mg PO DAILY [facility] Last Admin: 03/18/18 08:23 Dose: 10 mg Aspirin (Aspirin) 325 mg PO DAILY [facility] Last Admin: 03/18/18 08:23 Dose: 325 mg Atorvastatin Calcium (Lipitor) 80 mg PO HS [facility] Last Admin: 03/17/18 20:31 Dose: 80 mg Enoxaparin Sodium (Lovenox) 40 mg SC 0900 [facility] Last Admin: 03/18/18 08:23 Dose: 40 mg Folic Acid (Folvite) 1 mg PO DAILY [facility] Last Admin: 03/18/18 08:23 Dose: 1 mg Lorazepam (Ativan) 1 mg PO Q4H PRN PRN Reason: Anxiety/Agitation Last Admin: 03/17/18 20:32 Dose: 1 mg Metoprolol Tartrate (Lopressor) 50 mg PO BID [facility] Last Admin: 03/18/18 08:23 Dose: 50 mg Thiamine HCl (Thiamine) 100 mg PO DAILY [facility] Last Admin: 03/18/18 08:23 Dose: 100 mg
[2018-03-18 15:43] VITALS: BP 128/85; TEMP 97.7
--- NOTE | 2018-03-18 20:32 | DIS ---
DATE OF ADMISSION: 03/06/2018 DATE OF DISCHARGE: 03/18/2018 DISCHARGE DISPOSITION: To [facility]. PRIMARY DISCHARGE DIAGNOSES: Acute cerebrovascular accident, status post TPA and mechanical extracti on of thrombus with residual expressive aphasia and mild dysphagia. SECONDARY DISCHARGE DIAGNOSES: Hypertension and dyslipidemia. PROCEDURES DONE DURING HOSPITALIZATION: The patient has had CT angio of brain done on the day of adm ission, which showed thrombus involving the left M1 segment. There was moderate stenosis involving p roximal left internal carotid artery. CT brain showed hyperdense left MCA sign suggesting acute thro mbus within the left middle cerebral artery. There was also lacunar infarct seen in each basal gangl ia of indeterminate age. Remote fracture and deformity of the nasal bone is seen. The patient has h ad cerebral angiography with mechanical thrombectomy done of left MCA occlusion done by Dr. Sarkis Gillis on 03/06/2018. Echo with 2D Doppler showed EF of 60%-65%. There was diastolic dysfunctio n. No thrombus was seen in the cardiac chambers. Modified barium swallow done for speech therapy sh owed aspiration with various materials. This was done on 03/11/2018. H and H 17 and 51, platelet co unt 321,000, white count of 9, MCV is 97. PT, INR, PTT on admission was normal. Discharge BUN and c reatinine is 20 and 1.8. Albumin is 3.9. DISCHARGE MEDICATIONS: Norvasc 10 mg daily, aspirin 325 mg daily, Lipitor 80 mg p.o. at bedtime, fol ic acid 1 mg daily, Lopressor 50 mg twice daily, Flomax 0.4 mg daily, omeprazole 20 mg daily. ALLERGIES: No known drug allergies. DISCHARGE PLAN: The patient to follow up with primary care physician in 1 week. INPATIENT CONSULTS: Dr. Adorno for Neurology, Dr. De La Torre for Pulmonary and Critical Care, Dr. Franki Lopez for Intervention Neurosurgery. BRIEF COURSE DURING HOSPITALIZATION: The patient initially was brought to emergency room for altered mental state and weakness. He had a CT brain done, which showed hyperdense left MCA sign suggesting acute thrombus. His CT angio brain was done, which showed left M2 segment thrombus. Dr. Lopez, int erventional neurosurgeon was consulted. The patient received TPA and later had mechanical thrombecto my done as well. Post-mechanical thrombectomy, there was good shinto of blood flow into the mid dle cerebral artery. The patient had complete stroke workup done. Echo done showed good ejection fr action with no thrombus. The patient has cognitive deficits with dysarthria and aphasia. He is work ing with physical therapy, occupational therapy and speech therapies. The patient has been eating be tter when family is around. He still needs cognitive improvement. He is being discharged to [facility] for further recuperation prior to going home. He needs ongoing speech therapy evalua tion along with PT, OT evaluations at the [facility] upon discharge. A total of 35 minutes was spent on discharge plan. Please see a [id number] documentation on [facility] for the day of discharge.
== END 2018-03-18 16:17 | DRG 24 ==
LOC: ERS 16:01 → CCU 19:34 → 2SE 03-07 17:53 → T4-B 03-13 22:26
PROVIDERS: ADMIT Internal Medicine; ATTEND Internal Medicine
PROC: 03CG3ZZ Extirpation of Matter from Intracranial Artery, Percutaneous Approach (ICD-10-PCS; principal; 2018-03-06)
PROC: 3E03317 Introduction of Other Thrombolytic into Peripheral Vein, Percutaneous Approach (ICD-10-PCS; 2018-03-06)
DX: I63.312 Cerebral infarction due to thrombosis of left middle cerebral artery (principal); I50.32 Chronic diastolic (congestive) heart failure; F10.231 Alcohol dependence with withdrawal delirium; R47.01 Aphasia; R13.10 Dysphagia, unspecified; I11.0 Hypertensive heart disease with heart failure; K21.9 Gastro-esophageal reflux disease without esophagitis; E86.0 Dehydration; R47.02 Dysphasia; E78.5 Hyperlipidemia, unspecified; F17.210 Nicotine dependence, cigarettes, uncomplicated
CPT/HCPCS: 36415; 36416; 37184; 70450; 70496; 70498; 74018; 74230; 80048; 80053; 82553; 84484; 85025; 85610; 85730; 93005; 93306; 96365; A4216; C1757; C1769; C1887; G8978-GP-CK; G8979-GP-CI; G8987-GO-CJ; G8988-GO-CI; G8996-GN-CK; G8996-GN-CM; G8996-GN-CN; G8997-GN-CI; G8997-GN-CL; G8997-GN-CN; J0360; J1644; J1650; J2001; J2060; J2405; J2704; J2997; J3010; J7050